=== PATIENT | female | born 1960 | race Caucasian/White ===

== ENCOUNTER → 2016-09-27 | Outpatient (REF) | payer OTHER ==
[~2016-09-27] MED LIST: /CELE20CA OR; /DULO30CA OR; /ESOM40CA OR; /QUET10TA OR; ALEVE PO; ALLE25CA OR; ALLEGRA D PO; BISA5TA OR; BUDE150T PO; CALCIUM CITRATE PO; CLAR5CHW OR; COMPOUND CREAM TOP; FISH1000 OR; GLUC500T3 OR; HYDROCODONE/APAP PO; LORA1TAB OR; LUNE2TAB PO; LYRI75CA OR; MACR50CA PO; MAGN500T2 OR; METH750T OR; MIRALEX PO; MULTIVIT PO; PAIN PO; SING10TA31 OR; SOMA350T OR; VITACAP31 PO; VITAMIN B12 INJECT IM; [UNRECOGNIZED DRUG - OTHER] PO; [UNRECOGNIZED DRUG - OTHER] PO
[2016-09-27 16:12] LABS: ALBUMIN 3.4 GM/DL (3.2-5.2); ALBUMIN/GLOBULIN RATIO 1.03 (1.00-1.93); ALKALINE PHOSPHATASE 143 U/L (45-117); ALT/SGPT 19 U/L (12-78); ANION GAP 4 MEQ/L (8-16); AST/SGOT 20 U/L (15-37); BILIRUBIN,TOTAL 0.2 MG/DL (0.2-1.0); BLOOD UREA NITROGEN 16 MG/DL (7-18); CALCIUM LEVEL 8.7 MG/DL (8.5-10.1); CARBON DIOXIDE LEVEL 30 MEQ/L (21-32); CHLORIDE LEVEL 101 MEQ/L (98-107); CREATININE FOR GFR 0.87 MG/DL (0.55-1.02); GLOMERULAR FILTRATION RATE > 60.0 (>51); GLUCOSE, FASTING 93 MG/DL (70-105); SODIUM LEVEL 135 MEQ/L (136-145); TOTAL PROTEIN 6.7 GM/DL (6.4-8.2)
[2016-09-27 16:48] LABS: BASO % 0.3 % (0.0-1.0); EOS % 1.1 % (0.0-3.0); LARGE UNSTAINED CELL # 0.1 K/mm3 (0.0-0.4); LYMPH # 1.6 K/mm3 (1.5-4.5); LYMPH % 29.2 % (24.0-44.0); MEAN CORPUSCULAR HEMOGLOBIN 26.9 pg (27.0-33.0); MEAN CORPUSCULAR HGB CONC 31.3 g/dl (32.0-36.5); MEAN CORPUSCULAR VOLUME 86.2 fl (80.0-96.0); MONO # 0.3 K/mm3 (0.0-0.8); NEUTROPHILS # 3.1 K/mm3 (1.8-7.7); NEUTROPHILS % 61.4 % (36.0-66.0); PLATELET COUNT, AUTOMATED 281 k/mm3 (150-450); RED CELL DISTRIBUTION WIDTH 13.9 % (11.5-14.5); WHITE BLOOD COUNT 5.1 K/mm3 (4.0-10.0)
[2016-09-27 18:03] LABS: ERYTHROCYTE SEDIMENTATION RATE 23 mm/hr (0-30)
[2016-09-30 00:09] LABS: Lyme Disease IgG/IgM Antibodie <0.91 ISR (0.00-0.90); Lyme Disease IgM Ab Quantitati <0.80 index (0.00-0.79)
== END ==
LOC: M LABDRAW1 15:35
PROVIDERS: ATTEND Internal Medicine Rheumatology
DX: M35.9 Systemic involvement of connective tissue, unspecified (principal); Z79.899 Other long term (current) drug therapy